=== PATIENT | male | born 1990 | race Two or more races ===

== ENCOUNTER 2018-11-17 21:49 | Emergency (ER) | payer OTHER | END 2018-11-17 23:37 | disposition home or self-care (01) | LOC: JERFT 21:49 ==

== ENCOUNTER 2021-07-08 08:29 | Emergency (ER) | payer OTHER ==
[2021-07-08 08:35] VITALS: BP 119/68; PULSE 96; TEMP 98; BMI 27.3
[2021-07-08] MEDS ORDERED: CYCLOBENZAPRINE HCL 10 MG TABLET (FP) PO ONE (09:31)
[2021-07-08] MEDS ORDERED: KETOROLAC TROMETHAMINE 30 MG/1 ML VIAL IM ONE (09:31)
[2021-07-08] MEDS ORDERED: CYCLOBENZAPRINE HCL 10 MG TABLET (FP) ONE ×2 (09:40→09:41)
[2021-07-08] MEDS ORDERED: KETOROLAC TROMETHAMINE 30 MG/1 ML VIAL ONE ×2 (09:40→09:41)
== END 2021-07-08 10:09 | disposition home or self-care (01) ==
LOC: JERFT 08:29
PROC: 3E0233Z Introduction of Anti-inflammatory into Muscle, Percutaneous Approach (ICD-10-PCS; principal; 2021-07-08)
DX: M54.50 Low back pain, unspecified (principal)
CPT/HCPCS: 96372; 99284-25